=== PATIENT | female | born 1950 | race African-American/Black ===

== ENCOUNTER 2017-07-01 18:49 | Emergency (ER) | payer OTHER, MEDICARE ==
[~2017-07-01] VITALS: Ht 165.1 cm; Wt 70.0 kg
[2017-07-01 18:51] VITALS: BP 186/71
== END 2017-07-01 23:48 | disposition left against medical advice (07) ==
LOC: ER 18:49
DX: M54.2 Cervicalgia (principal); Z53.21 Procedure and treatment not carried out due to patient leaving prior to being seen by health care provider